=== PATIENT | female | born 1980 | race Asian ===

== ENCOUNTER 2017-07-09 03:27 | Inpatient (IN) | payer BC ==
[2017-07-09] VITALS (30 sets, daily range): BP systolic 94–154; BP diastolic 53–81; PULSE 69–96; TEMP 97.8–98.8
[~2017-07-09] VITALS: Ht 154.9 cm; Wt 64.5 kg
[~2017-07-09 03:27] MED LIST: MOTRIN 600600 MG/TAB PO; PERCOCET 325 MG1 TA2 PO; PRENATAL1 TA1 PO
[2017-07-09] MEDS ORDERED: CALCIUM CARBON650 M2 (04:04)
[2017-07-09] MEDS ORDERED: NATURAL IRON65 MG (04:04)
[2017-07-09 06:38] LABS: BASO % 0.3 % (0.0-2.0); EOS # 0.1 (0.0-0.7); EOS % 0.8 % (0-4.0); GRAN # 5.8 (1.4-6.5); HEMOGLOBIN 12.7 g/dl (12.5-16.0); LYMPH # 1.2 (1.2-3.4); MEAN CELL VOLUME 93 fl (80.0-100.0); MEAN CORPUSCULAR HEMOGLOBIN 33 pg (27.0-31.0); MEAN CORPUSCULAR HGB CONC 36 g/dl (33.0-37.0); MEAN PLATELET VOLUME 11.2 fl (7.4-10.4); MONO # 0.5 (0.1-0.6); MONO % 5.9 % (1.7-9.3); PLATELET COUNT 108 K/mm3 (130-400); REDCELL DISTRIBUTION WIDTH-CV 12.5 % (11.5-14.5); WHITE BLOOD COUNT 7.7 K/mm3 (4.8-10.8)
[2017-07-09 06:43] LABS: HEMATOCRIT 35.5 % (37.0-47.0)
[2017-07-10 02:45] VITALS: BP 98/64; PULSE 83; TEMP 97.8
[2017-07-10 08:00] VITALS: BP 105/58; PULSE 84; TEMP 97.4
[2017-07-10 08:16] LABS: BASO % 0.2 % (0.0-2.0); EOS # 0.1 (0.0-0.7); EOS % 0.7 % (0-4.0); GRAN # 7.1 (1.4-6.5); GRAN % 79.3 % (42.2-75.2); LYMPH # 1.2 (1.2-3.4); LYMPH % 12.9 % (20.0-51.0); MEAN CELL VOLUME 95 fl (80.0-100.0); MEAN CORPUSCULAR HGB CONC 35 g/dl (33.0-37.0); MEAN PLATELET VOLUME 10.8 fl (7.4-10.4); MONO # 0.5 (0.1-0.6); MONO % 6.1 % (1.7-9.3); PLATELET COUNT 104 K/mm3 (130-400); RED BLOOD COUNT 2.63 M/mm3 (4.10-5.30); REDCELL DISTRIBUTION WIDTH-CV 12.8 % (11.5-14.5); WHITE BLOOD COUNT 8.9 K/mm3 (4.8-10.8)
[2017-07-10 08:17] LABS: HEMOGLOBIN 8.7 g/dl (12.5-16.0); MEAN CORPUSCULAR HEMOGLOBIN 33 pg (27.0-31.0)
[2017-07-10 16:00] VITALS: BP 98/55; PULSE 77
[2017-07-10 19:00] VITALS: BP 105/64; PULSE 99; TEMP 98.1
[2017-07-11 07:45] VITALS: BP 94/67; PULSE 81; TEMP 97.7
[2017-07-11] MEDS ORDERED: IBU600 MG PO (09:09)
== END 2017-07-11 11:51 | disposition home or self-care (01) | DRG 775 ==
LOC: LDRO 03:27 → LDR 05:49 → OB 15:25 → LDRO 07-18 10:34
PROVIDERS: Obstetrics & Gynecology
PROC: 10D07Z6 Extraction of Products of Conception, Vacuum, Via Natural or Artificial Opening (ICD-10-PCS; principal; 2017-07-09)
PROC: 0DQR0ZZ Repair Anal Sphincter, Open Approach (ICD-10-PCS; 2017-07-09)
PROC: 0UQMXZZ Repair Vulva, External Approach (ICD-10-PCS; 2017-07-09)
DX: O34.211 Maternal care for low transverse scar from previous cesarean delivery (principal); O70.21 Third degree perineal laceration during delivery, IIIa; O71.82 Other specified trauma to perineum and vulva; N85.8 Other specified noninflammatory disorders of uterus; O76 Abnormality in fetal heart rate and rhythm complicating labor and delivery; O99.02 Anemia complicating childbirth; D64.9 Anemia, unspecified; Z3A.38 38 weeks gestation of pregnancy; Z37.0 Single live birth
CPT/HCPCS: J2590; J2795; J7120